=== PATIENT | male | born 1970 | race Caucasian/White ===

== ENCOUNTER 2017-10-26 17:10 | Inpatient (IN) | payer OTHER ==
[2017-10-26 19:46] VITALS: BMI 31.3
--- NOTE | 2017-10-26 21:44 | HP ---
Admission [facility] Chief Complaint: Seeking admission to rehab. Allergies/Adverse Reactions: Allergies Allergy/AdvReac Type Severity Reaction Status Date / Time No Known Allergies Allergy Verified 10/26/17 19:53 History of Present Illness: 46 years old male with a history of alcohol dependence is seeking admission to rehab. Patient was discharged from [facility], where he was admitted for 10 days (October 15- Oct 26 2017). Patient was discharged from the hospital today and this is his first admission to [facility]. He has medical history of HTN, heart failure, anxiety, Gout, psoriasis and depression. He denies suicidde attempt and suicidal ideation at this time. Exam Limitations: No Limitations - Ebola screening Have you traveled outside of the country in the last 21 days: No Have you had contact with anyone from an Ebola affected area: No Have you been sick,other than usual withdrawal symptoms: No Do you have a fever: No - Review of Systems Constitutional: No Symptoms Reported EENT: reports: No Symptoms Reported Respiratory: reports: No Symptoms reported Cardiac: reports: No Symptoms Reported GI: reports: No Symptoms Reported : reports: No Symptoms Reported Musculoskeletal: reports: No Symptoms Reported Integumentary: reports: No Symptoms Reported Neuro: reports: No Symptoms reported Endocrine: reports: No Symptoms Reported Hematology: reports: No Symptoms Reported Psychiatric: reports: No Sypmtoms Reported, Mood/Affect Appropiate, Orientated x3 Other Systems: Reviewed and Negative Patient History - Patient Medical History Hx Anemia: No Hx Asthma: No Hx Chronic Obstructive Pulmonary Disease (COPD): No Hx Cancer: No Hx Cardiac Disorders: No Hx Congestive Heart Failure: Yes (Coreg) Hx Hypertension: Yes (Enalapril) Hx Hypercholesterolemia: Yes (No on medication) Hx Pacemaker: No HX Cerebrovascular Accident: No Hx Seizures: No Hx Diabetes: No Hx Gastrointestinal Disorders: No Hx Liver Disease: No Hx Genitourinary Disorders: No Hx Sexually Transmitted Disorders: No Hx Renal Disease (ESRD): No Hx Thyroid Disease: No Hx Human Immunodeficiency Virus (HIV): No (Negative 2018) Hx Hepatitis C: No Hx Depression: Yes (Seroquel) Hx Suicide Attempt: No (Denies suicide attempt and suicidal ideation at this time) Hx Bipolar Disorder: No Hx Schizophrenia: No Other Medical History: Anxiety- Seroquel - Patient Surgical History Past Surgical History: Yes Hx Neurologic Surgery: No Hx Cataract Extraction: No Hx Cardiac Surgery: No Hx Lung Surgery: No Hx Abdominal Surgery: No Hx Appendectomy: No Hx Cholecystectomy: No Hx Genitourinary Surgery: No Hx Orthopedic Surgery: No Other Surgical History: Right eye surgery Anesthesia Reaction: No - PPD History Previous Implant?: No Documented Results: Negative w/o proof Implanted On Prior [facility] Admission?: Yes PPD to be Administered?: Yes - Reproductive History Patient is a Female of Child Bearing Age (11 -55 yrs old): No (MALE) - Smoking Cessation Smoking history: Never smoked Have you smoked in the past 12 months: No Hx Chewing Tobacco Use: No Initiated information on smoking cessation: No Family Disease History - Family Disease History Family History: Denies Admission Physical Exam [facility] - Vital Signs Vital Signs: Vital Signs - 24 hr 10/26/17 19:44 Temperature 99 F Pulse Rate 83 Respiratory 18 Rate Blood Pressure 140/92 - Physical General Appearance: Yes: Within Normal Limits, Appropriately Dressed HEENTM: Yes: EOMI, Normal ENT Inspection, Normal Voice Respiratory: Yes: Lungs Clear, Normal Breath Sounds, No Respiratory Distress Neck: Yes: Supple Breast: Yes: Breast Exam Deferred Cardiology: Yes: Regular Rhythm, Regular Rate, S1, S2 Abdominal: Yes: Normal Bowel Sounds Genitourinary: Yes: Within Normal Limits Back: Yes: Normal Inspection Musculoskeletal: Yes: Within Normal Limits Extremities: Yes: Normal Inspection Neurological: Yes: Alert, Normal Mood/Affect Integumentary: Yes: Dry Lymphatic: Yes: Within Normal Limits - Diagnostic (1) Uncomplicated alcohol dependence Current Visit: Yes Status: Chronic (2) HTN (hypertension) Current Visit: Yes Status: Chronic Qualifiers: Hypertension type: essential hypertension Qualified Code(s): I10 - Essential (primary) hypertension (3) Heart failure Current Visit: Yes Status: Chronic (4) Gout Current Visit: Yes Status: Chronic (5) Psoriasis Current Visit: Yes Status: Chronic (6) Depression Current Visit: Yes Status: Chronic Cleared for Admission [facility] - Detox or Rehab [facility] Level of Care: Observation Bed Claeared for Rehab Admission: Yes [facility] Breath Alcohol Content Breath Alcohol Content: 0 Urine Drug Screen - Results Drug Screen Negative: No Urine Drug Screen Results: BZO-Benzodiazepines, TCA-Tricyclic Antidepress Inpatient Rehab Admission - Initial Determination Are CD services needed?: Yes Free of communicable disease: Yes Not in need of hospitalization: Yes - Rehab Admission Criteria Previous failed treatment: Yes Poor recovery environment: Yes Comorbidities: Yes Lacks judgement: No Patient is meeting Inpatient Rehab admission criteria:: Yes
[2017-10-26] MEDS ORDERED: MAGNESIUM HYDROX 2400MG/30ML ORAL SUSPENSION 30 ML CUP PO PRN (21:54)
[2017-10-26] MEDS ORDERED: guaiFENesin/D-METHORPHAN HB 10 ML UNIT-DOSE CUPS PO PRN (21:54)
[2017-10-26] MEDS ORDERED: ACETAMINOPHEN 325 MG TABLET (FP) PO PRN (21:54)
[2017-10-26] MEDS ORDERED: MAG HYDROX/AL HYDROX/SIMETH 30 ML UNIT-DOSE CUP PO PRN (21:54)
[2017-10-26] MEDS ORDERED: MAGNESIUM CITRATE 300 ML BOTTLE PO PRN (21:54)
[2017-10-26] MEDS ORDERED: MENTHOL/PHENOL 1 EACH UD MM PRN (21:54)
[2017-10-26] MEDS ORDERED: IBUPROFEN 400 MG TABLET (FP) PO PRN (21:54)
[2017-10-26] MEDS ORDERED: LOPERAMIDE HCL 2 MG CAPSULE PO PRN (21:54)
[2017-10-26] MEDS ORDERED: P-EPHED 60MG/TRIPROLIDI 2.5MG TABLET PO PRN (21:54)
[2017-10-27] MEDS ORDERED: diphenhydrAMINE HCL 50 MG CAPSULE PO ONE (01:19)
[2017-10-27] MEDS: MELATONIN 5 MG TABLETS PO PRN ×2 (02:22→22:24)
[2017-10-27] MEDS: THIAMINE HCL 100 MG TABLET (FP) PO SCH ×2 (02:23→22:19)
--- NOTE | 2017-10-27 06:33 | HP ---
Psychiatrist Admission - Data Date of interview: 10/27/17 Admission source: [facility] Identifying data: This is the first [facility] admission for this 46 years old male, father of 2 children, unemployed on public assistance Medical History: Significant for anemia, hypertension, dyslipidemia, congestive heart failure, alcoholic cardiomyopathy, alcohol hepatitis, gout, psoriasis and history of surgery both eyes Psychiatric History: Reports history of depression and anxiety diagnosed qapproximately 8 years ago. Denies previous psychiachiatric hospitalization or suicidal attempt. Reports seeing a psychiatrist at a clinic in the [facility] in [place] and he is prescribed Seroquel 150 mg po QID. Acknowlwdges not seeing his psychiatrist for over a month(missed monthly appointment) At present , reports feeling depressed, anxious ans sleeping poorly Physical/Sexual Abuse/Trauma History: Denies history of emotional, physical or sexual abuse as well as DV relationship Additional Comment: Reports history of a few misdemeanor arrests on charges of drinking in public Vital Signs: Vital Signs - 24 hr 10/26/17 10/27/17 10/27/17 19:44 01:10 03:30 Temperature 99 F 98 F Pulse Rate 83 60 Respiratory 18 Rate Blood Pressure 140/92 135/87 Allergies/Adverse Reactions: Allergies Allergy/AdvReac Type Severity Reaction Status Date / Time No Known Allergies Allergy Verified 10/26/17 19:53 Date of last physical exam: 10/26/17 Concur with the findings of this exam: Yes - Substance Abuse/Tx History Hx Alcohol Use: Yes Hx Substance Use: No Substance Use Type: Alcohol (Started drinking alkcohol at age 19, consumes 5 pints daily. Last drank on 10/15/17) Hx Substance Use Treatment: Yes (Recent inpt detox admission @ [facility] ) Mental Status Exam - Mental Status Exam Alert and Oriented to: Time, Place, Person Cognitive Function: Fair Patient Appearance: Well Groomed Mood: Depressed, Anxious Affect: Appropriate Patient Behavior: Cooperative Speech Pattern: Clear Voice Loudness: Normal Thought Process: Intact, Goal Oriented Thought Disorder: Paranoid Ideation Hallucinations: Denies Suicidal Ideation: Denies Homicidal Ideation: Denies Insight/Judgement: Fair Sleep: Poorly Appetite: Good Muscle strength/Tone: Normal Gait/Station: Normal Psychiatric Findings - Problem List ([place] 1, 2,3) (1) Alcohol dependence Current Visit: Yes Status: Acute (2) Alcohol-induced sleep disorder Current Visit: Yes Status: Acute (3) Gout Current Visit: Yes Status: Chronic (4) HTN (hypertension) Current Visit: Yes Status: Chronic Qualifiers: Hypertension type: essential hypertension Qualified Code(s): I10 - Essential (primary) hypertension (5) Heart failure Current Visit: Yes Status: Chronic (6) Psoriasis Current Visit: Yes Status: Chronic (7) HLD (hyperlipidemia) Current Visit: Yes Status: Acute (8) Alcohol-induced anxiety disorder Current Visit: Yes Status: Acute - Initial Treatment Plan Initial Treatment Plan: Called patient's psychiatrist office([phone]) and told by Dr Anaya that patient last saw Dr Soriano, her partner in June 2017 and was prescribed Seroquel 100 mg po BID at the time. Discharge summary from [facility] from where patient was referred after being discharged yesterday note that Seroquel 100 mg po at bedtime as part of discharge medication. Seroquel 100 mg po HS will be ordered for patient
[2017-10-27 09:52] LABS: URINE APPEARANCE SLCLOUDY; URINE BILIRUBIN NEGATIVE (<2.0 mg/dL); URINE BLOOD NEGATIVE (NEGATIVE); URINE COLOR LTYELLOW; URINE GLUCOSE (UA) NEGATIVE (NEGATIVE); URINE KETONE NEGATIVE (NEGATIVE); URINE LEUK ESTERASE NEGATIVE (NEGATIVE); URINE NITRITE NEGATIVE (NEGATIVE); URINE PROTEIN NEGATIVE (NEGATIVE); URINE UROBILINOGEN NEGATIVE mg/dL (0.2-1.0)
[2017-10-27 09:54] LABS: HEMATOCRIT 30.8 % (35.4-49); MCH 29.6 pg (25.7-33.7); MCHC 32.6 g/dl (32.0-35.9); MEAN CELL VOLUME 90.8 fl (80-96); MEAN PLT VOLUME 7.7 fl (7.5-11.1); PLATELET COUNT 383 K/MM3 (134-434); RBC 3.39 M/mm3 (4.00-5.60); RDW 16.4 % (11.9-15.9); WHITE BLOOD COUNT 5.7 K/mm3 (4.0-10.0)
[2017-10-27] MEDS ORDERED: FLUOCINONIDE 0.05% TOP OINT (60 GM TUBE) TP SCH ×2 (10:00→15:23)
[2017-10-27] MEDS ORDERED: ZINC OXIDE 20% TOPICAL OINTMENT 454 GM JAR TP SCH (10:00)
[2017-10-27 10:13] LABS: CHLORIDE 109 mmol/L (98-107); POTASSIUM 4.5 mmol/L (3.5-5.1); SODIUM 142 mmol/L (136-145)
[2017-10-27] MEDS: PRENATAL VITAMINS W/ FOLIC ACID TABLET (FP) PO SCH (10:27)
[2017-10-27] MEDS: CARVEDILOL 12.5 MG TABLET (FP) PO SCH (10:27)
[2017-10-27 11:16] LABS: ALK PHOS 145 U/L (45-117); ANION GAP 7 (8-16); BILIRUBIN,TOTAL 0.3 mg/dL (0.2-1.0); BLOOD UREA NITROGEN 18 mg/dL (7-18); CALCIUM 8.5 mg/dL (8.5-10.1); CO2 26 mmol/L (21-32); CREATININE 0.9 mg/dL (0.7-1.3); GLUCOSE,RANDOM 90 mg/dL (74-106); SGOT/AST 50 U/L (15-37); SGPT/ALT 58 U/L (12-78); TOT PROT 7.6 g/dl (6.4-8.2)
--- NOTE | 2017-10-27 13:51 | EKG ---
Test Reason : Blood Pressure : / mmHG Vent. Rate : 059 BPM Atrial Rate : 059 BPM P-R Int : 212 ms QRS Dur : 080 ms QT Int : 450 ms P-R-T Axes : 032 008 013 degrees QTc Int : 445 ms SINUS BRADYCARDIA WITH 1ST DEGREE A-V BLOCK OTHERWISE NORMAL ECG NO PREVIOUS ECGS AVAILABLE Confirmed by MD Daja, Randal ([id number]) on 10/27/2017 1:50:53 PM Referred By: Confirmed By:Randal Farnsworth MD
[2017-10-27] MEDS ORDERED: diphenhydrAMINE HCL 25 MG CAPSULE (FP) PO SCH ×2 (15:30→22:00)
--- NOTE | 2017-10-27 15:42 | PN ---
S Progress Note Note: Patient currently on Otezla PO BID, Zinc oxide, Triamcinolone oint 0.1%, Fluocinonide 0.05% top QD for psoriasis, patient may use his own medication.
--- NOTE | 2017-10-27 15:53 | EKG ---
Test Reason : Blood Pressure : / mmHG Vent. Rate : 064 BPM Atrial Rate : 064 BPM P-R Int : 210 ms QRS Dur : 076 ms QT Int : 432 ms P-R-T Axes : 030 013 025 degrees QTc Int : 445 ms SINUS RHYTHM WITH 1ST DEGREE A-V BLOCK CANNOT RULE OUT ANTERIOR INFARCT , AGE UNDETERMINED ABNORMAL ECG NONSPECIFIC T WAVE ABNORMALITY Confirmed by MD Daja, Randal ([id number]) on 10/27/2017 3:53:20 PM Referred By: Confirmed By:Randal Farnsworth MD
[2017-10-27] MEDS ORDERED: PT OWN MED DRAWER 7, Y5N ONE ×2 (17:07→22:27)
[2017-10-27] MEDS: TRIAMCINOLONE ACETONIDE 0.1% TP SCH (17:57)
[2017-10-27] MEDS: VITAMINS A AND D TOPICAL OINTMENT 60 GM TUBE TP SCH (17:57)
[2017-10-27] MEDS: PATIENT'S OWN MEDICATION (NON-FORMULARY) (Apremilast [Otezla] 30 MG) PO SCH (22:18)
[2017-10-27] MEDS: ZINC OXIDE TP SCH (22:19)
[2017-10-27] MEDS: QUEtiapine FUMARATE 100 MG TABLET (FP) PO SCH (22:19)
[2017-10-28] MEDS: IBUPROFEN 600 MG TABLET (FP) PO PRN ×3 (00:43→22:50)
[2017-10-28] MEDS ORDERED: diphenhydrAMINE HCL 25 MG CAPSULE (FP) PO ONE (01:00)
[2017-10-28] MEDS ORDERED: diphenhydrAMINE HCL 25 MG CAPSULE (FP) PO PRN (03:14)
[2017-10-28] MEDS ORDERED: diphenhydrAMINE HCL 25 MG CAPSULE (FP) PO SCH ×2 (03:15→04:00)
[2017-10-28] MEDS: VITAMINS A AND D TOPICAL OINTMENT 60 GM TUBE TP SCH ×3 (06:28→18:55)
[2017-10-28] MEDS: CARVEDILOL 12.5 MG TABLET (FP) PO SCH (10:42)
[2017-10-28] MEDS: PRENATAL VITAMINS W/ FOLIC ACID TABLET (FP) PO SCH (10:42)
[2017-10-28] MEDS: PATIENT'S OWN MEDICATION (NON-FORMULARY) (Apremilast [Otezla] 30 MG) PO SCH ×2 (10:46→22:25)
[2017-10-28] MEDS: ZINC OXIDE TP SCH ×2 (10:47→22:26)
[2017-10-28] MEDS: TRIAMCINOLONE ACETONIDE 0.1% TP SCH (10:50)
--- NOTE | 2017-10-28 15:13 | PN ---
[facility] Progress Note Note: Patient c/o redness, swelling of BLE. Has history of cellulitis and Psoriasis. Also reports dry, flaky scalp. Vital Signs Temperature 98.1 F 10/28/17 07:13 Pulse Rate 82 10/28/17 10:00 Respiratory Rate 18 10/28/17 10:00 Blood Pressure 127/85 10/28/17 10:00 O2 Sat by Pulse Oximetry (%) Laboratory Tests 10/27/17 10/27/17 10/27/17 07:00 07:30 07:30 WBC 5.7 RBC 3.39 L Hgb 10.0 L Hct 30.8 L MCV 90.8 MCH 29.6 MCHC 32.6 RDW 16.4 H Plt Count 383 MPV 7.7 Sodium 142 Potassium 4.5 Chloride 109 H Carbon Dioxide 26 Anion Gap 7 L BUN 18 Creatinine 0.9 Creat Clearance w eGFR > 60 Random Glucose 90 Calcium 8.5 Total Bilirubin 0.3 AST 50 H ALT 58 Alkaline Phosphatase 145 H Total Protein 7.6 Albumin 3.0 L Urine Color Ltyellow Urine Appearance Slcloudy Urine pH 5.0 Ur Specific [place] 1.017 Urine Protein Negative Urine Glucose (UA) Negative Urine Ketones Negative Urine Blood Negative Urine Nitrite Negative Urine Bilirubin Negative Urine Urobilinogen Negative Ur Leukocyte Esterase Negative RPR Titer 10/27/17 07:30 WBC RBC Hgb Hct MCV MCH MCHC RDW Plt Count MPV Sodium Potassium Chloride Carbon Dioxide Anion Gap BUN Creatinine Creat Clearance w eGFR Random Glucose Calcium Total Bilirubin AST ALT Alkaline Phosphatase Total Protein Albumin Urine Color Urine Appearance Urine pH Ur Specific [place] Urine Protein Urine Glucose (UA) Urine Ketones Urine Blood Urine Nitrite Urine Bilirubin Urine Urobilinogen Ur Leukocyte Esterase RPR Titer Nonreactive Obj; General: alert and oriented x 3. Skin: + dry flaky scalp, +psoriatic plaques throughout body Car: S1S2 Resp: CTA BL Ext: +redness, swelling and psoriatic plaques of BLE A/P Confirmed with Nasrin from [facility] as patient was in detox there last week that he received approximately 3 days of Keflex and Vibramycin for cellulitis of legs. Also confirmed Benadryl 25mg every 6 hours prn for itching. Will resume Keflex 500mg every 6 hrs prn x 7 more days Benadryl ordered prn Ketoconazole shampoo for dry scalp continue to monitor clinically
[2017-10-28] MEDS: CEPHALEXIN MONOHYDRATE 500 MG CAPSULE (UD) PO SCH (18:04)
[2017-10-28] MEDS: KETOCONAZOLE 2 % SHAMPOO 120 ML BOTTLE TP SCH (18:06)
[2017-10-28] MEDS ORDERED: PT OWN MED DRAWER 7, Y5N ONE ×2 (21:00→22:49)
[2017-10-28] MEDS: QUEtiapine FUMARATE 100 MG TABLET (FP) PO SCH (22:22)
[2017-10-28] MEDS: THIAMINE HCL 100 MG TABLET (FP) PO SCH (22:22)
[2017-10-28] MEDS: MELATONIN 5 MG TABLETS PO PRN (22:27)
[2017-10-28] MEDS: diphenhydrAMINE HCL 25 MG CAPSULE (FP) PO PRN (22:28)
[2017-10-29] MEDS: VITAMINS A AND D TOPICAL OINTMENT 60 GM TUBE TP SCH ×6 (00:30→23:06)
[2017-10-29] MEDS: CEPHALEXIN MONOHYDRATE 500 MG CAPSULE (UD) PO SCH ×6 (00:30→23:04)
[2017-10-29] MEDS ORDERED: PT OWN MED DRAWER 7, Y5N ONE ×4 (06:45→23:06)
[2017-10-29] MEDS: PRENATAL VITAMINS W/ FOLIC ACID TABLET (FP) PO SCH (10:36)
[2017-10-29] MEDS: IBUPROFEN 600 MG TABLET (FP) PO PRN ×2 (10:37→16:55)
[2017-10-29] MEDS: CARVEDILOL 12.5 MG TABLET (FP) PO SCH (10:37)
[2017-10-29] MEDS: ZINC OXIDE TP SCH ×2 (10:38→23:04)
[2017-10-29] MEDS: COLLOIDAL OATMEAL 1 BAR EACH TP PRN (10:38)
[2017-10-29] MEDS: AMMONIUM LACTATE 12% LOTION 225 GM BOTTLE TP SCH (10:39)
[2017-10-29] MEDS: TRIAMCINOLONE ACETONIDE 0.1% TP SCH (10:39)
[2017-10-29] MEDS: FLUOCINONIDE 0.05% CREAM (15 GM TUBE) TP SCH (10:39)
[2017-10-29] MEDS: PATIENT'S OWN MEDICATION (NON-FORMULARY) (Apremilast [Otezla] 30 MG) PO SCH ×2 (10:40→23:04)
[2017-10-29] MEDS: diphenhydrAMINE HCL 25 MG CAPSULE (FP) PO PRN ×3 (10:47→23:07)
--- NOTE | 2017-10-29 14:26 | PN ---
[facility] Progress Note Note: +PPD. Chest x-ray ordered continue to monitor
--- NOTE | 2017-10-29 15:13 | PN ---
S Progress Note Note: c/kya frequent skin itch worse at night. Reports hx of gout and was alluprinol out patient. Vital Signs Temperature 97.7 F 10/29/17 07:04 Pulse Rate 82 10/29/17 10:00 Respiratory Rate 18 10/29/17 10:00 Blood Pressure 133/92 10/29/17 10:00 O2 Sat by Pulse Oximetry (%) Laboratory Last Values WBC 5.7 K/mm3 (4.0-10.0) 10/27/17 07:30 RBC 3.39 M/mm3 (4.00-5.60) L 10/27/17 07:30 Hgb 10.0 GM/dL (11.7-16.9) L 10/27/17 07:30 Hct 30.8 % (35.4-49) L 10/27/17 07:30 MCV 90.8 fl (80-96) 10/27/17 07:30 MCH 29.6 pg (25.7-33.7) 10/27/17 07:30 MCHC 32.6 g/dl (32.0-35.9) 10/27/17 07:30 RDW 16.4 % (11.9-15.9) H 10/27/17 07:30 Plt Count 383 K/MM3 (134-434) 10/27/17 07:30 MPV 7.7 fl (7.5-11.1) 10/27/17 07:30 Sodium 142 mmol/L (136-145) 10/27/17 07:30 Potassium 4.5 mmol/L (3.5-5.1) 10/27/17 07:30 Chloride 109 mmol/L (98-107) H 10/27/17 07:30 Carbon Dioxide 26 mmol/L (21-32) 10/27/17 07:30 Anion Gap 7 (8-16) L 10/27/17 07:30 BUN 18 mg/dL (7-18) 10/27/17 07:30 Creatinine 0.9 mg/dL (0.7-1.3) 10/27/17 07:30 Creat Clearance w eGFR > 60 (>60) 10/27/17 07:30 Random Glucose 90 mg/dL (74-106) 10/27/17 07:30 Calcium 8.5 mg/dL (8.5-10.1) 10/27/17 07:30 Total Bilirubin 0.3 mg/dL (0.2-1.0) 10/27/17 07:30 AST 50 U/L (15-37) H 10/27/17 07:30 ALT 58 U/L (12-78) 10/27/17 07:30 Alkaline Phosphatase 145 U/L (45-117) H 10/27/17 07:30 Total Protein 7.6 g/dl (6.4-8.2) 10/27/17 07:30 Albumin 3.0 g/dl (3.4-5.0) L 10/27/17 07:30 Urine Color Ltyellow 10/27/17 07:00 Urine Appearance Slcloudy 10/27/17 07:00 Urine pH 5.0 (5.0-8.0) 10/27/17 07:00 Ur Specific [place] 1.017 (1.001-1.035) 10/27/17 07:00 Urine Protein Negative (NEGATIVE) 10/27/17 07:00 Urine Glucose (UA) Negative (NEGATIVE) 10/27/17 07:00 Urine Ketones Negative (NEGATIVE) 10/27/17 07:00 Urine Blood Negative (NEGATIVE) 10/27/17 07:00 Urine Nitrite Negative (NEGATIVE) 10/27/17 07:00 Urine Bilirubin Negative (<2.0 mg/dL) 10/27/17 07:00 Urine Urobilinogen Negative mg/dL (0.2-1.0) 10/27/17 07:00 Ur Leukocyte Esterase Negative (NEGATIVE) 10/27/17 07:00 RPR Titer Nonreactive (NONREACTIVE) 10/27/17 07:30 A/P Patient AO x 3 in no apparent distress Full ROM , ambulates with cane Skin intact with multiple scaly lesions thorough body - Psoriasis Plan: Continue current medications Hydrocortisone oint at night increase fluids uric aicd level AM Continue to monitor
[2017-10-29] MEDS: QUEtiapine FUMARATE 100 MG TABLET (FP) PO SCH (23:04)
[2017-10-29] MEDS: THIAMINE HCL 100 MG TABLET (FP) PO SCH (23:07)
[2017-10-29] MEDS: MELATONIN 5 MG TABLETS PO PRN (23:08)
[2017-10-30] MEDS: IBUPROFEN 600 MG TABLET (FP) PO PRN ×3 (00:53→17:17)
[2017-10-30] MEDS ORDERED: PT OWN MED DRAWER 7, Y5N ONE ×6 (03:29→23:48)
[2017-10-30] MEDS: CEPHALEXIN MONOHYDRATE 500 MG CAPSULE (UD) PO SCH ×4 (06:40→23:46)
[2017-10-30] MEDS: VITAMINS A AND D TOPICAL OINTMENT 60 GM TUBE TP SCH ×4 (06:42→23:48)
--- NOTE | 2017-10-30 08:14 | PN ---
[facility] Progress Note Note: Discharge summary from [facility] where patient recently completed inpatient detox on 10/26/[address] Cesar(( ; phone: [phone]). Comorbid medical conditions include: Gout, Essential hypertension , Alcohol hepatitis, Cardiomyopathy, Pancytopenia, CHF, Anemia, Psoriasis. Medications: Allopurinol 100 mg po daily, Ammonium lactate 12% lotion to affected areas, Artificial tears ohpthalmic solution: 1 drop into both eyes every 6 hrs as needed, Carvedilol 12.5 mg po BID with meals, Atarax 50 mg po Q 8hrs prn for itching, Seroquel 100 mg BID & 100 mg HS, Triamcinolone 0.1% ointment to affected areas. Patient is already on Seroquel 100 mg po HS. Seroquel 50 mg po BID @ 10 AM & 5 PM will be added to his med regimen. Dr Cesar told writer editor that Seroquel was prescribed to address anxiety symptoms
[2017-10-30] MEDS: CARVEDILOL 12.5 MG TABLET (FP) PO SCH ×2 (10:30→22:05)
[2017-10-30] MEDS: QUEtiapine FUMARATE 50 MG TABLET PO SCH ×2 (10:30→17:11)
[2017-10-30] MEDS: PRENATAL VITAMINS W/ FOLIC ACID TABLET (FP) PO SCH (10:30)
[2017-10-30] MEDS: PATIENT'S OWN MEDICATION (NON-FORMULARY) (Apremilast [Otezla] 30 MG) PO SCH ×2 (10:32→22:05)
[2017-10-30] MEDS: diphenhydrAMINE HCL 25 MG CAPSULE (FP) PO PRN ×3 (10:32→23:46)
[2017-10-30] MEDS: TRIAMCINOLONE ACETONIDE 0.1% TP SCH (10:33)
[2017-10-30] MEDS: AMMONIUM LACTATE 12% LOTION 225 GM BOTTLE TP SCH (10:34)
[2017-10-30] MEDS: FLUOCINONIDE 0.05% CREAM (15 GM TUBE) TP SCH (10:34)
[2017-10-30] MEDS: ZINC OXIDE TP SCH (10:34)
--- NOTE | 2017-10-30 15:33 | PN ---
[facility] Progress Note Note: Labs reviewed and Uric Acid 5.9, WNL. Enalapril and Coreg verified with inpatient [facility] medication list. Enalapril 5mg daily and Coreg 12.5mg BID ordered.
[2017-10-30] MEDS: QUEtiapine FUMARATE 100 MG TABLET (FP) PO SCH (22:03)
[2017-10-30] MEDS: THIAMINE HCL 100 MG TABLET (FP) PO SCH (22:03)
[2017-10-30] MEDS: ZINC OXIDE 20% TOPICAL OINTMENT 30 GM TUBE TP SCH (22:05)
[2017-10-31] MEDS: IBUPROFEN 600 MG TABLET (FP) PO PRN ×3 (06:40→23:43)
[2017-10-31] MEDS: VITAMINS A AND D TOPICAL OINTMENT 60 GM TUBE TP SCH ×4 (06:41→23:43)
[2017-10-31] MEDS: CEPHALEXIN MONOHYDRATE 500 MG CAPSULE (UD) PO SCH ×4 (06:41→23:43)
[2017-10-31] MEDS: QUEtiapine FUMARATE 50 MG TABLET PO SCH ×2 (10:53→17:00)
[2017-10-31] MEDS: ENALAPRIL MALEATE 5 MG TABLET (FP) PO SCH (10:53)
[2017-10-31] MEDS: PRENATAL VITAMINS W/ FOLIC ACID TABLET (FP) PO SCH (10:53)
[2017-10-31] MEDS: PATIENT'S OWN MEDICATION (NON-FORMULARY) (Apremilast [Otezla] 30 MG) PO SCH ×2 (10:54→21:10)
[2017-10-31] MEDS: AMMONIUM LACTATE 12% LOTION 225 GM BOTTLE TP SCH (10:54)
[2017-10-31] MEDS: CARVEDILOL 12.5 MG TABLET (FP) PO SCH ×2 (10:54→21:10)
[2017-10-31] MEDS: FLUOCINONIDE 0.05% CREAM (15 GM TUBE) TP SCH (10:55)
[2017-10-31] MEDS: TRIAMCINOLONE ACETONIDE 0.1% TP SCH (10:56)
[2017-10-31] MEDS: diphenhydrAMINE HCL 25 MG CAPSULE (FP) PO PRN ×2 (11:00→17:02)
[2017-10-31] MEDS ORDERED: PT OWN MED DRAWER 7, Y5N ONE ×4 (11:08→20:07)
[2017-10-31] MEDS: ARTIFICIAL TEARS (POLYVINYL ALCOHOL 1.4%) OPTH DROPS OU PRN (11:17)
[2017-10-31] MEDS: KETOCONAZOLE 2 % SHAMPOO 120 ML BOTTLE TP SCH (11:18)
[2017-10-31] MEDS: ZINC OXIDE 20% TOPICAL OINTMENT 30 GM TUBE TP SCH ×2 (11:18→21:13)
[2017-10-31] MEDS: QUEtiapine FUMARATE 100 MG TABLET (FP) PO SCH (21:10)
[2017-10-31] MEDS: THIAMINE HCL 100 MG TABLET (FP) PO SCH (21:10)
[2017-10-31] MEDS: MELATONIN 5 MG TABLETS PO PRN (23:43)
[2017-11-01] MEDS: CEPHALEXIN MONOHYDRATE 500 MG CAPSULE (UD) PO SCH ×4 (06:29→23:21)
[2017-11-01] MEDS: IBUPROFEN 600 MG TABLET (FP) PO PRN ×3 (06:30→23:21)
[2017-11-01] MEDS: VITAMINS A AND D TOPICAL OINTMENT 60 GM TUBE TP SCH ×4 (06:31→23:22)
[2017-11-01] MEDS: ENALAPRIL MALEATE 5 MG TABLET (FP) PO SCH (10:28)
[2017-11-01] MEDS: AMMONIUM LACTATE 12% LOTION 225 GM BOTTLE TP SCH (10:28)
[2017-11-01] MEDS: PRENATAL VITAMINS W/ FOLIC ACID TABLET (FP) PO SCH (10:28)
[2017-11-01] MEDS: CARVEDILOL 12.5 MG TABLET (FP) PO SCH ×2 (10:28→21:47)
[2017-11-01] MEDS: diphenhydrAMINE HCL 25 MG CAPSULE (FP) PO PRN ×3 (10:28→23:22)
[2017-11-01] MEDS: QUEtiapine FUMARATE 50 MG TABLET PO SCH ×2 (10:28→17:00)
[2017-11-01] MEDS: TRIAMCINOLONE ACETONIDE 0.1% TP SCH (10:29)
[2017-11-01] MEDS: PATIENT'S OWN MEDICATION (NON-FORMULARY) (Apremilast [Otezla] 30 MG) PO SCH ×2 (10:29→21:47)
[2017-11-01] MEDS: FLUOCINONIDE 0.05% CREAM (15 GM TUBE) TP SCH (10:29)
[2017-11-01] MEDS: ZINC OXIDE 20% TOPICAL OINTMENT 30 GM TUBE TP SCH ×2 (10:30→21:47)
[2017-11-01] MEDS ORDERED: PT OWN MED DRAWER 7, Y5N ONE ×3 (16:10→23:24)
[2017-11-01] MEDS: THIAMINE HCL 100 MG TABLET (FP) PO SCH (21:47)
[2017-11-01] MEDS: QUEtiapine FUMARATE 100 MG TABLET (FP) PO SCH (21:47)
[2017-11-01] MEDS: MELATONIN 5 MG TABLETS PO PRN (23:21)
[2017-11-02] MEDS: VITAMINS A AND D TOPICAL OINTMENT 60 GM TUBE TP SCH ×3 (06:25→18:30)
[2017-11-02] MEDS: CEPHALEXIN MONOHYDRATE 500 MG CAPSULE (UD) PO SCH ×4 (06:25→23:13)
[2017-11-02] MEDS: IBUPROFEN 600 MG TABLET (FP) PO PRN ×2 (06:26→14:27)
[2017-11-02] MEDS: QUEtiapine FUMARATE 50 MG TABLET PO SCH ×2 (10:26→17:00)
[2017-11-02] MEDS: PRENATAL VITAMINS W/ FOLIC ACID TABLET (FP) PO SCH (10:26)
[2017-11-02] MEDS: ENALAPRIL MALEATE 5 MG TABLET (FP) PO SCH (10:26)
[2017-11-02] MEDS: PATIENT'S OWN MEDICATION (NON-FORMULARY) (Apremilast [Otezla] 30 MG) PO SCH ×2 (10:27→23:17)
[2017-11-02] MEDS: AMMONIUM LACTATE 12% LOTION 225 GM BOTTLE TP SCH (10:28)
[2017-11-02] MEDS: CARVEDILOL 12.5 MG TABLET (FP) PO SCH ×2 (10:28→23:13)
[2017-11-02] MEDS: TRIAMCINOLONE ACETONIDE 0.1% TP SCH (10:29)
[2017-11-02] MEDS: FLUOCINONIDE 0.05% CREAM (15 GM TUBE) TP SCH (10:29)
[2017-11-02] MEDS: ZINC OXIDE 20% TOPICAL OINTMENT 30 GM TUBE TP SCH ×2 (10:29→23:11)
[2017-11-02] MEDS: diphenhydrAMINE HCL 25 MG CAPSULE (FP) PO PRN ×3 (10:44→23:20)
--- NOTE | 2017-11-02 17:29 | PN ---
[facility] Progress Note Note: Patient informed of Uric acid level. Pt also states he continues to c/o itching even with Benadryl 25mg every 6 hours prn ordered. Will change Benadryl to 25mg every four hours prn for itching. Continue to monitor clinically.
[2017-11-02] MEDS ORDERED: PT OWN MED DRAWER 7, Y5N ONE ×2 (22:07→23:12)
[2017-11-02] MEDS: HYDROCORTISONE 1% TOPICAL OINT 30 GM TUBE TP PRN (23:12)
[2017-11-02] MEDS: QUEtiapine FUMARATE 100 MG TABLET (FP) PO SCH (23:13)
[2017-11-02] MEDS: MELATONIN 5 MG TABLETS PO PRN (23:15)
[2017-11-03] MEDS: CEPHALEXIN MONOHYDRATE 500 MG CAPSULE (UD) PO SCH ×3 (06:24→17:17)
[2017-11-03] MEDS: IBUPROFEN 600 MG TABLET (FP) PO PRN ×2 (06:26→22:33)
[2017-11-03] MEDS: VITAMINS A AND D TOPICAL OINTMENT 60 GM TUBE TP SCH ×4 (06:27→17:19)
[2017-11-03] MEDS: TRIAMCINOLONE ACETONIDE 0.1% TP SCH (10:22)
[2017-11-03] MEDS: QUEtiapine FUMARATE 50 MG TABLET PO SCH ×2 (10:22→17:17)
[2017-11-03] MEDS: PRENATAL VITAMINS W/ FOLIC ACID TABLET (FP) PO SCH (10:22)
[2017-11-03] MEDS: ENALAPRIL MALEATE 5 MG TABLET (FP) PO SCH (10:22)
[2017-11-03] MEDS: CARVEDILOL 12.5 MG TABLET (FP) PO SCH ×2 (10:22→22:24)
[2017-11-03] MEDS: KETOCONAZOLE 2 % SHAMPOO 120 ML BOTTLE TP SCH (10:23)
[2017-11-03] MEDS: AMMONIUM LACTATE 12% LOTION 225 GM BOTTLE TP SCH (10:23)
[2017-11-03] MEDS: diphenhydrAMINE HCL 25 MG CAPSULE (FP) PO PRN ×3 (10:25→22:27)
[2017-11-03] MEDS: THIAMINE HCL 100 MG TABLET (FP) PO SCH (10:29)
[2017-11-03] MEDS: ZINC OXIDE 20% TOPICAL OINTMENT 30 GM TUBE TP SCH ×2 (10:29→22:24)
[2017-11-03] MEDS: FLUOCINONIDE 0.05% CREAM (15 GM TUBE) TP SCH (10:31)
[2017-11-03] MEDS: PATIENT'S OWN MEDICATION (NON-FORMULARY) (Apremilast [Otezla] 30 MG) PO SCH ×2 (10:31→22:24)
[2017-11-03] MEDS ORDERED: PT OWN MED DRAWER 7, Y5N ONE (19:33)
[2017-11-03] MEDS: QUEtiapine FUMARATE 100 MG TABLET (FP) PO SCH (22:24)
[2017-11-03] MEDS: MELATONIN 5 MG TABLETS PO PRN (22:27)
[2017-11-04] MEDS: CEPHALEXIN MONOHYDRATE 500 MG CAPSULE (UD) PO SCH ×3 (01:28→12:12)
[2017-11-04] MEDS: IBUPROFEN 600 MG TABLET (FP) PO PRN ×3 (06:08→22:50)
[2017-11-04] MEDS: CARVEDILOL 12.5 MG TABLET (FP) PO SCH ×2 (10:45→21:55)
[2017-11-04] MEDS: QUEtiapine FUMARATE 50 MG TABLET PO SCH ×2 (10:45→17:03)
[2017-11-04] MEDS: PRENATAL VITAMINS W/ FOLIC ACID TABLET (FP) PO SCH (10:45)
[2017-11-04] MEDS: ENALAPRIL MALEATE 5 MG TABLET (FP) PO SCH (10:45)
[2017-11-04] MEDS: PATIENT'S OWN MEDICATION (NON-FORMULARY) (Apremilast [Otezla] 30 MG) PO SCH ×2 (10:46→21:56)
[2017-11-04] MEDS: diphenhydrAMINE HCL 25 MG CAPSULE (FP) PO PRN ×2 (10:48→21:55)
[2017-11-04] MEDS: AMMONIUM LACTATE 12% LOTION 225 GM BOTTLE TP SCH (10:49)
[2017-11-04] MEDS: FLUOCINONIDE 0.05% CREAM (15 GM TUBE) TP SCH (10:49)
[2017-11-04] MEDS ORDERED: PT OWN MED DRAWER 7, Y5N ONE (10:52)
[2017-11-04] MEDS: ZINC OXIDE 20% TOPICAL OINTMENT 30 GM TUBE TP SCH ×2 (10:57→21:58)
[2017-11-04] MEDS: THIAMINE HCL 100 MG TABLET (FP) PO SCH (10:57)
[2017-11-04] MEDS: TRIAMCINOLONE ACETONIDE 0.1% TP SCH (10:57)
[2017-11-04] MEDS: VITAMINS A AND D TOPICAL OINTMENT 60 GM TUBE TP SCH ×4 (12:51→23:41)
[2017-11-04] MEDS: QUEtiapine FUMARATE 100 MG TABLET (FP) PO SCH (21:55)
[2017-11-04] MEDS: MELATONIN 5 MG TABLETS PO PRN (22:50)
[2017-11-05] MEDS: VITAMINS A AND D TOPICAL OINTMENT 60 GM TUBE TP SCH ×4 (06:10→23:03)
[2017-11-05] MEDS: IBUPROFEN 600 MG TABLET (FP) PO PRN ×2 (06:12→23:02)
[2017-11-05] MEDS: QUEtiapine FUMARATE 50 MG TABLET PO SCH ×2 (10:27→17:15)
[2017-11-05] MEDS: PRENATAL VITAMINS W/ FOLIC ACID TABLET (FP) PO SCH (10:27)
[2017-11-05] MEDS: THIAMINE HCL 100 MG TABLET (FP) PO SCH (10:27)
[2017-11-05] MEDS: PATIENT'S OWN MEDICATION (NON-FORMULARY) (Apremilast [Otezla] 30 MG) PO SCH ×2 (10:28→22:19)
[2017-11-05] MEDS: ENALAPRIL MALEATE 5 MG TABLET (FP) PO SCH (10:28)
[2017-11-05] MEDS: CARVEDILOL 12.5 MG TABLET (FP) PO SCH ×2 (10:28→22:15)
[2017-11-05] MEDS: diphenhydrAMINE HCL 25 MG CAPSULE (FP) PO PRN ×3 (10:28→23:02)
[2017-11-05] MEDS: ZINC OXIDE 20% TOPICAL OINTMENT 30 GM TUBE TP SCH ×2 (10:28→22:16)
[2017-11-05] MEDS: TRIAMCINOLONE ACETONIDE 0.1% TP SCH (10:29)
[2017-11-05] MEDS: AMMONIUM LACTATE 12% LOTION 225 GM BOTTLE TP SCH (10:29)
[2017-11-05] MEDS: FLUOCINONIDE 0.05% CREAM (15 GM TUBE) TP SCH (10:37)
[2017-11-05] MEDS ORDERED: PT OWN MED DRAWER 7, Y5N ONE ×3 (10:41→23:02)
[2017-11-05] MEDS: COLLOIDAL OATMEAL 1 BAR EACH TP PRN (14:57)
[2017-11-05] MEDS: QUEtiapine FUMARATE 100 MG TABLET (FP) PO SCH (22:14)
[2017-11-05] MEDS: MELATONIN 5 MG TABLETS PO PRN (23:02)
[2017-11-05] MEDS: HYDROCORTISONE 1% TOPICAL OINT 30 GM TUBE TP PRN (23:06)
[2017-11-06] MEDS ORDERED: PT OWN MED DRAWER 7, Y5N ONE ×5 (05:23→23:26)
[2017-11-06] MEDS: VITAMINS A AND D TOPICAL OINTMENT 60 GM TUBE TP SCH ×4 (06:33→23:26)
[2017-11-06] MEDS: IBUPROFEN 600 MG TABLET (FP) PO PRN (06:35)
[2017-11-06] MEDS: ENALAPRIL MALEATE 5 MG TABLET (FP) PO SCH (10:10)
[2017-11-06] MEDS: PRENATAL VITAMINS W/ FOLIC ACID TABLET (FP) PO SCH (10:10)
[2017-11-06] MEDS: CARVEDILOL 12.5 MG TABLET (FP) PO SCH ×2 (10:10→23:20)
[2017-11-06] MEDS: QUEtiapine FUMARATE 50 MG TABLET PO SCH ×2 (10:11→17:13)
[2017-11-06] MEDS: PATIENT'S OWN MEDICATION (NON-FORMULARY) (Apremilast [Otezla] 30 MG) PO SCH ×2 (10:11→23:28)
[2017-11-06] MEDS: diphenhydrAMINE HCL 25 MG CAPSULE (FP) PO PRN ×3 (10:12→23:29)
[2017-11-06] MEDS: THIAMINE HCL 100 MG TABLET (FP) PO SCH (10:14)
[2017-11-06] MEDS: AMMONIUM LACTATE 12% LOTION 225 GM BOTTLE TP SCH (10:15)
[2017-11-06] MEDS: TRIAMCINOLONE ACETONIDE 0.1% TP SCH (10:15)
[2017-11-06] MEDS: ZINC OXIDE 20% TOPICAL OINTMENT 30 GM TUBE TP SCH ×2 (10:16→23:21)
[2017-11-06] MEDS: KETOCONAZOLE 2 % SHAMPOO 120 ML BOTTLE TP SCH (10:16)
[2017-11-06] MEDS: FLUOCINONIDE 0.05% CREAM (15 GM TUBE) TP SCH (10:19)
[2017-11-06] MEDS: QUEtiapine FUMARATE 100 MG TABLET (FP) PO SCH (23:20)
[2017-11-06] MEDS: HYDROCORTISONE 1% TOPICAL OINT 30 GM TUBE TP PRN (23:25)
[2017-11-06] MEDS: MELATONIN 5 MG TABLETS PO PRN (23:29)
[2017-11-07] MEDS: VITAMINS A AND D TOPICAL OINTMENT 60 GM TUBE TP SCH ×3 (06:33→16:00)
[2017-11-07] MEDS: IBUPROFEN 600 MG TABLET (FP) PO PRN ×2 (06:34→22:33)
[2017-11-07] MEDS ORDERED: PT OWN MED DRAWER 7, Y5N ONE ×3 (09:10→19:12)
[2017-11-07] MEDS: PRENATAL VITAMINS W/ FOLIC ACID TABLET (FP) PO SCH (10:05)
[2017-11-07] MEDS: CARVEDILOL 12.5 MG TABLET (FP) PO SCH ×2 (10:05→22:29)
[2017-11-07] MEDS: THIAMINE HCL 100 MG TABLET (FP) PO SCH (10:05)
[2017-11-07] MEDS: diphenhydrAMINE HCL 25 MG CAPSULE (FP) PO PRN ×3 (10:05→22:31)
[2017-11-07] MEDS: PATIENT'S OWN MEDICATION (NON-FORMULARY) (Apremilast [Otezla] 30 MG) PO SCH ×2 (10:05→22:29)
[2017-11-07] MEDS: ENALAPRIL MALEATE 5 MG TABLET (FP) PO SCH (10:05)
[2017-11-07] MEDS: QUEtiapine FUMARATE 50 MG TABLET PO SCH ×2 (10:05→16:58)
[2017-11-07] MEDS: AMMONIUM LACTATE 12% LOTION 225 GM BOTTLE TP SCH (10:06)
[2017-11-07] MEDS: TRIAMCINOLONE ACETONIDE 0.1% TP SCH (10:06)
[2017-11-07] MEDS: FLUOCINONIDE 0.05% CREAM (15 GM TUBE) TP SCH (10:07)
[2017-11-07] MEDS: ZINC OXIDE 20% TOPICAL OINTMENT 30 GM TUBE TP SCH ×2 (10:07→22:29)
[2017-11-07] MEDS: QUEtiapine FUMARATE 100 MG TABLET (FP) PO SCH (22:29)
[2017-11-07] MEDS: MELATONIN 5 MG TABLETS PO PRN (22:32)
[2017-11-08] MEDS: VITAMINS A AND D TOPICAL OINTMENT 60 GM TUBE TP SCH ×5 (00:20→23:01)
[2017-11-08] MEDS: IBUPROFEN 600 MG TABLET (FP) PO PRN (06:12)
[2017-11-08] MEDS: CARVEDILOL 12.5 MG TABLET (FP) PO SCH ×2 (10:22→22:45)
[2017-11-08] MEDS: THIAMINE HCL 100 MG TABLET (FP) PO SCH (10:22)
[2017-11-08] MEDS: ENALAPRIL MALEATE 5 MG TABLET (FP) PO SCH (10:22)
[2017-11-08] MEDS: PRENATAL VITAMINS W/ FOLIC ACID TABLET (FP) PO SCH (10:22)
[2017-11-08] MEDS: PATIENT'S OWN MEDICATION (NON-FORMULARY) (Apremilast [Otezla] 30 MG) PO SCH ×2 (10:22→22:50)
[2017-11-08] MEDS: QUEtiapine FUMARATE 50 MG TABLET PO SCH ×2 (10:22→17:05)
[2017-11-08] MEDS: AMMONIUM LACTATE 12% LOTION 225 GM BOTTLE TP SCH (10:23)
[2017-11-08] MEDS: TRIAMCINOLONE ACETONIDE 0.1% TP SCH (10:23)
[2017-11-08] MEDS: ZINC OXIDE 20% TOPICAL OINTMENT 30 GM TUBE TP SCH ×2 (10:24→22:51)
[2017-11-08] MEDS: FLUOCINONIDE 0.05% CREAM (15 GM TUBE) TP SCH (10:24)
[2017-11-08] MEDS: diphenhydrAMINE HCL 25 MG CAPSULE (FP) PO PRN ×3 (10:26→22:52)
[2017-11-08] MEDS ORDERED: PT OWN MED DRAWER 7, Y5N ONE ×2 (10:28→22:47)
[2017-11-08] MEDS: QUEtiapine FUMARATE 100 MG TABLET (FP) PO SCH (22:45)
[2017-11-08] MEDS: MELATONIN 5 MG TABLETS PO PRN (22:53)
[2017-11-09] MEDS ORDERED: PT OWN MED DRAWER 7, Y5N ONE ×4 (05:13→22:44)
[2017-11-09] MEDS: VITAMINS A AND D TOPICAL OINTMENT 60 GM TUBE TP SCH ×3 (06:36→22:47)
[2017-11-09] MEDS: IBUPROFEN 600 MG TABLET (FP) PO PRN (06:37)
[2017-11-09] MEDS: PRENATAL VITAMINS W/ FOLIC ACID TABLET (FP) PO SCH (10:35)
[2017-11-09] MEDS: ENALAPRIL MALEATE 5 MG TABLET (FP) PO SCH (10:35)
[2017-11-09] MEDS: CARVEDILOL 12.5 MG TABLET (FP) PO SCH ×2 (10:35→22:46)
[2017-11-09] MEDS: QUEtiapine FUMARATE 50 MG TABLET PO SCH ×2 (10:35→17:15)
[2017-11-09] MEDS: THIAMINE HCL 100 MG TABLET (FP) PO SCH (10:35)
[2017-11-09] MEDS: PATIENT'S OWN MEDICATION (NON-FORMULARY) (Apremilast [Otezla] 30 MG) PO SCH ×2 (10:36→23:46)
[2017-11-09] MEDS: diphenhydrAMINE HCL 25 MG CAPSULE (FP) PO PRN ×3 (10:37→22:46)
[2017-11-09] MEDS: TRIAMCINOLONE ACETONIDE 0.1% TP SCH (10:38)
[2017-11-09] MEDS: AMMONIUM LACTATE 12% LOTION 225 GM BOTTLE TP SCH (10:38)
[2017-11-09] MEDS: FLUOCINONIDE 0.05% CREAM (15 GM TUBE) TP SCH (10:39)
[2017-11-09] MEDS: KETOCONAZOLE 2 % SHAMPOO 120 ML BOTTLE TP SCH (10:39)
[2017-11-09] MEDS: ZINC OXIDE 20% TOPICAL OINTMENT 30 GM TUBE TP SCH ×2 (10:40→23:46)
[2017-11-09] MEDS: ARTIFICIAL TEARS (POLYVINYL ALCOHOL 1.4%) OPTH DROPS OU PRN (13:22)
[2017-11-09] MEDS: QUEtiapine FUMARATE 100 MG TABLET (FP) PO SCH (22:46)
[2017-11-10] MEDS: VITAMINS A AND D TOPICAL OINTMENT 60 GM TUBE TP SCH ×3 (06:01→23:23)
--- NOTE | 2017-11-10 06:46 | PN ---
Psychiatric Progress Note Vital Signs: Vital Signs Period Temp Pulse Resp BP Sys/Fernández Pulse Ox Last 24 Hr 77 18-20 135/85 Date of Session: 11/10/17 Chief Complaint:: Discharge Note HPI: Patient addressing Alcohol Dependence comorbid with Alcohol-Induced Anxiety Disorder and Alcohol-Induced Sleep Disorder ROS: HTN, HLD, CHF, Gout, Psoriasis were medically managed Current Medications: Active Medications Generic Name Dose Route Start Last Admin Trade Name Freq PRN Reason Stop Dose Admin Acetaminophen 650 mg 10/26/17 21:54 Tylenol - PO Q4H PRN FEVER Al Hydroxide/Mg Hydroxide 30 ml 10/26/17 21:54 Mylanta Oral Suspension - PO Q6H PRN DYSPEPSIA Artificial Tears 1 drop 10/27/17 15:23 11/09/17 13:22 Artificial Tears OU 1 drop BID PRN Administration DRY EYES Carvedilol 12.5 mg 10/30/17 22:00 11/09/17 22:46 Coreg - PO 12.5 mg BID TRISTON Administration Colloidal Oatmeal 1 applic 10/27/17 03:11 11/05/17 14:57 Aveeno Soap - TP 1 applic DAILY PRN Administration HYGEINE Diphenhydramine HCl 25 mg 11/02/17 17:27 11/09/17 22:46 Benadryl - PO 25 mg Q4H PRN Administration FOR ITCHING Enalapril Maleate 5 mg 10/31/17 10:00 11/09/17 10:35 Vasotec - PO 5 mg DAILY TRISTON Administration Eucalyptus/Menthol/Phenol/Sorbitol 1 each 10/26/17 21:54 Cepastat Lozenge - MM Q4H PRN SORE THROAT Fluocinonide 1 applic 10/29/17 10:00 11/09/17 10:39 Lidex 0.05% Cream - TP 1 applic DAILY TRISTON Administration Guaifenesin 10 ml 10/26/17 21:54 Robitussin Dm - PO Q6H PRN COUGH Hydrocortisone 1 applic 10/29/17 15:08 11/06/17 23:25 Hytone 1% Ointment - TP 1 applic HS PRN Administration itch Ibuprofen 600 mg 10/27/17 15:22 11/09/17 06:37 Motrin - PO 600 mg Q8H PRN Administration Pain level 4-6 Ketoconazole 1 applic 10/28/17 15:15 11/09/17 10:39 Nizoral 2% Shampoo - TP 1 applic Q3D@1000 TRISTON Administration Lactic Acid 1 applic 10/29/17 10:00 11/09/17 10:38 Lac-Hydrin 12 TP 1 applic DAILY TRISTON Administration Loperamide HCl 4 mg 10/26/17 21:54 Imodium - PO Q6H PRN DIARRHEA Magnesium Citrate 300 ml 10/26/17 21:54 Citroma - PO Q48H PRN CONSTIPATION Magnesium Hydroxide 30 ml 10/26/17 21:54 11/04/17 19:29 Milk Of Magnesia - PO 30 ml DAILY PRN Administration CONSTIPATION Melatonin 5 mg 10/26/17 22:00 11/08/17 22:53 Melatonin PO 5 mg HS PRN Administration INSOMNIA Multi-Ingredient Ointment 1 applic 10/30/17 22:00 11/09/17 23:46 Zinc Oxide TP Not Given BID TRISTON Non-Formulary Med ( 1 each 10/27/17 16:30 11/09/17 10:38 Pt Own Med) TP 1 each Triamcinolone DAILY TRISTON Administration Acetonide 0.1% Oint Non-Formulary Medication 30 mg 10/27/17 22:00 11/09/17 23:46 Apremilast [Otezla] PO 30 mg BID TRISTON Administration Multivit/Folic Acid/Iron 1 tab 10/27/17 10:00 11/09/17 10:35 Vitamins (Sjr) - PO 1 tab DAILY TRISTON Administration Pseudoephedrine/Triprolidine 1 combo 10/26/17 21:54 Actifed - PO TID PRN NASAL CONGESTION Quetiapine Fumarate 100 mg 10/27/17 22:00 11/09/17 22:46 Seroquel - PO 100 mg HS TRISTON Administration Quetiapine Fumarate 50 mg 10/30/17 10:00 11/09/17 17:15 Seroquel - PO 50 mg BID@1000,1700 TRISTON Administration Thiamine HCl 100 mg 11/03/17 10:00 11/09/17 10:35 Vitamin B1 - PO 100 mg DAILY TRISTON Administration Vitamin A/Vitamin D 1 applic 10/27/17 18:00 11/10/17 06:01 Vitamin A & D Top Oint - TP Not Given Q6HPO TRISTON Current Side Effect: No Lab tests ordered: Yes Lab tests reviewed: Yes Provider note:: Patient will complete this program on 11/11/17. He has met his treatment goals and will continue to address his issues in outpatient treatment at [facility]. Told typewriters functional tester that from his participation in this program, he has learned to keep busy by doing things like going to hindu, atending meetings etc. He responded well to Seroquel 50 mg BID & 100 mg HS. Script for 30 days supply of this medication will be electronically transmitted to [facility] at [address] [place] [address]. He is stable for discharge on 11/11/17 Total face to face time:: 35 Mental Status Exam - Mental Status Exam Alert and Oriented to: Time, Place, Person Cognitive Function: Fair Patient Appearance: Well Groomed Mood: Hopeful, Euthymic Affect: Appropriate Patient Behavior: Cooperative Speech Pattern: Clear Voice Loudness: Normal Thought Process: Intact, Goal Oriented Thought Disorder: Not Present Hallucinations: Denies Suicidal Ideation: Denies Homicidal Ideation: Denies Insight/Judgement: Fair Sleep: Fair Appetite: Good Muscle strength/Tone: Normal Gait/Station: Normal Psychiatric Treatment Plan - Problem List (1) Alcohol dependence Current Visit: Yes (2) Alcohol-induced sleep disorder Current Visit: Yes (3) Gout Current Visit: Yes (4) HTN (hypertension) Current Visit: Yes Qualifiers: Hypertension type: essential hypertension Qualified Code(s): I10 - Essential (primary) hypertension (5) Heart failure Current Visit: Yes (6) Psoriasis Current Visit: Yes (7) HLD (hyperlipidemia) Current Visit: Yes (8) Alcohol-induced anxiety disorder Current Visit: Yes Initial treatment plan: Patient will be discharged tomorrow and referred to [facility] for outpatient treatment
[2017-11-10] MEDS: CARVEDILOL 12.5 MG TABLET (FP) PO SCH ×2 (10:37→22:16)
[2017-11-10] MEDS: PATIENT'S OWN MEDICATION (NON-FORMULARY) (Apremilast [Otezla] 30 MG) PO SCH ×2 (10:37→22:16)
[2017-11-10] MEDS: THIAMINE HCL 100 MG TABLET (FP) PO SCH (10:37)
[2017-11-10] MEDS: ENALAPRIL MALEATE 5 MG TABLET (FP) PO SCH (10:37)
[2017-11-10] MEDS: PRENATAL VITAMINS W/ FOLIC ACID TABLET (FP) PO SCH (10:37)
[2017-11-10] MEDS: QUEtiapine FUMARATE 50 MG TABLET PO SCH ×2 (10:37→17:16)
[2017-11-10] MEDS: diphenhydrAMINE HCL 25 MG CAPSULE (FP) PO PRN ×3 (10:38→22:19)
[2017-11-10] MEDS: TRIAMCINOLONE ACETONIDE 0.1% TP SCH (10:40)
[2017-11-10] MEDS: AMMONIUM LACTATE 12% LOTION 225 GM BOTTLE TP SCH (10:40)
[2017-11-10] MEDS: ZINC OXIDE 20% TOPICAL OINTMENT 30 GM TUBE TP SCH ×2 (10:40→22:22)
[2017-11-10] MEDS ORDERED: PT OWN MED DRAWER 7, Y5N ONE ×2 (10:43→21:01)
[2017-11-10] MEDS: FLUOCINONIDE 0.05% CREAM (15 GM TUBE) TP SCH (10:44)
[2017-11-10] MEDS: COLLOIDAL OATMEAL 1 BAR EACH TP PRN (10:48)
[2017-11-10] MEDS: QUEtiapine FUMARATE 100 MG TABLET (FP) PO SCH (22:16)
[2017-11-10] MEDS: MELATONIN 5 MG TABLETS PO PRN (22:20)
[2017-11-11 06:42] VITALS: BP 117/82; PULSE 76; TEMP 97.3
[2017-11-11] MEDS ORDERED: PT OWN MED DRAWER 7, Y5N ONE (08:46)
[2017-11-11] MEDS: THIAMINE HCL 100 MG TABLET (FP) PO SCH (09:14)
[2017-11-11] MEDS: ENALAPRIL MALEATE 5 MG TABLET (FP) PO SCH (09:14)
[2017-11-11] MEDS: PRENATAL VITAMINS W/ FOLIC ACID TABLET (FP) PO SCH (09:14)
[2017-11-11] MEDS: CARVEDILOL 12.5 MG TABLET (FP) PO SCH (09:14)
[2017-11-11] MEDS: QUEtiapine FUMARATE 50 MG TABLET PO SCH (09:14)
[2017-11-11] MEDS: VITAMINS A AND D TOPICAL OINTMENT 60 GM TUBE TP SCH (09:14)
[2017-11-11] MEDS: PATIENT'S OWN MEDICATION (NON-FORMULARY) (Apremilast [Otezla] 30 MG) PO SCH (09:14)
[2017-11-11] MEDS: AMMONIUM LACTATE 12% LOTION 225 GM BOTTLE TP SCH (09:15)
[2017-11-11] MEDS: FLUOCINONIDE 0.05% CREAM (15 GM TUBE) TP SCH (09:15)
[2017-11-11] MEDS: TRIAMCINOLONE ACETONIDE 0.1% TP SCH (09:16)
[2017-11-11] MEDS: ZINC OXIDE 20% TOPICAL OINTMENT 30 GM TUBE TP SCH (09:16)
== END 2017-11-11 09:28 | disposition home or self-care (01) | DRG 772 ==
LOC: YASAS 17:10 → Y3W 23:35
PROVIDERS: ADMIT Psychiatry & Neurology Psychiatry; ATTEND Psychiatry & Neurology Psychiatry
PROC: HZ42ZZZ Group Counseling for Substance Abuse Treatment, Cognitive-Behavioral (ICD-10-PCS; principal; 2017-10-26)
PROC: HZ42ZZZ Group Counseling for Substance Abuse Treatment, Cognitive-Behavioral (ICD-10-PCS; 2017-10-26)
DX: F10.20 Alcohol dependence, uncomplicated (principal); F10.280 Alcohol dependence with alcohol-induced anxiety disorder; F10.282 Alcohol dependence with alcohol-induced sleep disorder; I10 Essential (primary) hypertension; I50.9 Heart failure, unspecified; E78.5 Hyperlipidemia, unspecified; M10.9 Gout, unspecified; L40.9 Psoriasis, unspecified; K70.10 Alcoholic hepatitis without ascites
CPT/HCPCS: 36415; 71046-TC-FY; 80053; 81003; 84550; 85027; 86593; 93005; 93010